=== PATIENT | female | born 1985 | race Caucasian/White ===

== ENCOUNTER 2018-07-16 12:44 | Outpatient (CLI) | payer BC ==
--- NOTE | 2018-07-16 13:28 | RAD ---
LEFT HIP 2 VIEWS: HISTORY: Pain. COMPARISON: None. FINDINGS: Contour of the femoral head is maintained. Hip joint space is preserved. No fracture. IMPRESSION: Unremarkable left hip 2 views. POS: KAREN
== END 2018-07-16 12:45 | disposition home or self-care (01) ==
LOC: SCSRAD 12:44
PROVIDERS: ATTEND Family Medicine
DX: M25.552 Pain in left hip (principal)

== ENCOUNTER 2019-09-09 08:21 | Outpatient (CLI) | payer BC ==
--- NOTE | 2019-09-09 08:43 | RAD ---
EXAM: Two views chest PROVIDED CLINICAL HISTORY: Hemoptysis. History of pneumonia. COMPARISON: 05/22/2016 FINDINGS: Cardiac silhouette and pulmonary vasculature are within normal limits. The lungs are clear. The osse ous structures have a normal appearance. There has been no interval change from prior study. IMPRESSION: No acute cardiopulmonary process.
== END 2019-09-09 08:22 | disposition home or self-care (01) ==
LOC: BICRAD 08:21
PROVIDERS: ATTEND Family Medicine
DX: R04.2 Hemoptysis (principal)
CPT/HCPCS: 71046